=== PATIENT | male | born 1950 | race Caucasian/White ===

== ENCOUNTER → 2019-05-27 | Outpatient (CLI) | payer MEDICARE, OTHER ==
--- NOTE | 2019-05-27 18:32 | RAD ---
Study: LUMBAR SPINE MIN 4V Indication: Spondylolisthesis. Comparison: None. Findings: 5 nonrib-bearing lumbar vertebral elements. Grade 1 anterolisthesis of L3 on L4. Mild retrolisthesis of L4 on L5. Slight progression in the degree of anterolisthesis of L3 on L4 upon flexion. No change in alignment at L4-L5 or elsewhere with flexion or extension. Multilevel discogenic arthrosis with narrowing from L3-L4 through L5-S1 but most pronounced at L5-S1. Multilevel facet degeneration becoming more pronounced at the lower lumbar spine. Degenerative changes across the L3-L4 spinous processes. Mild degenerative changes at sacroiliac joints. Impression: 1. Grade 1 anterolisthesis of L3 on L4 that slightly worsens with flexion. No dynamic instability seen elsewhere. 2. Multilevel facet degeneration and discogenic arthrosis. Disc space narrowing is most pronounced at L5-S1. Facet degeneration appears most pronounced at L4-L5. Electronically signed by: NAT CHISHOLM MD (05/27/2019 6:29 PM) [facility]
== END | disposition home or self-care (01) ==
LOC: RAD 15:08
PROVIDERS: ATTEND Neurological Surgery
DX: M43.16 Spondylolisthesis, lumbar region (principal); M48.07 Spinal stenosis, lumbosacral region; M47.816 Spondylosis without myelopathy or radiculopathy, lumbar region
CPT/HCPCS: 72110